=== PATIENT | female | born 1960 | race African-American/Black ===

== ENCOUNTER → 2016-09-16 | Outpatient (CLI) | payer OTHER ==
--- NOTE | 2016-09-17 20:08 | HKNOTE ---
DATE OF SERVICE: 09/16/2016 REFERRING PHYSICIAN: Shirlene Murdock, RUTHIE; [address] [facility]; [place], [place] [address]. MAIN COMPLAINT: Pain in the left knee. HISTORY OF MAIN COMPLAINT: The patient is a 56-year-old female, who complains of pain in her left k nee. Pain has been present now for about 2 months. The patient tore a ligament in her left knee hiking in the [facility] in 2013. Her torn anterior cruciate ligament was repaired by Dr. Draper. She had no problems with her left knee after that until about 2 months ago, when she had a sudden on set of pain and swelling in the left knee. This occurred after a particularly strenuous session of "[employer] step dancing." The knee swells and occasionally feels unstable. The knee does not lock. The pain is mild and is a ggravated by walking, weightbearing, and stair climbing. She occasionally gets night pain and rest pain. On a level surface, she can walk as far as she likes, but if she twists her knee, then it fee ls unstable. She does limp almost all the time. She does not have a shoe lift. She cannot clip her toenails, bu t she can put on her shoes and socks. PAST ORTHOPEDIC HISTORY: ACL repair of the right knee by Dr. Draper in 2013. PRIOR CORTISONE INTAKE: None. ALCOHOL INTAKE: None. BLOOD TESTS FOR ARTHRITIS: None. OTHER JOINT PROBLEMS: None. WORK STATUS: Not working at present. PAST MEDICAL HISTORY: Hypertension, glaucoma. PAST SURGICAL HISTORY: Right knee anterior cruciate ligament repair by Dr. Draper in 2013. ALLERGIES: NONE. MEDICATIONS: 1. Verapamil extended-release 120 mg daily for hypertension. 2. Prednisolone ophthalmic solution 3 times a day for glaucoma. FAMILY HISTORY: Noncontributory. SYSTEMS REVIEW: Failing vision, gait disturbance, hypertension, otherwise negative. HABITS: The patient quit smoking 12 years ago. Alcohol intake: None. PHYSICAL EXAMINATION GENERAL: The patient is a remarkably fit-looking and youthful 56-year-old female. VITAL SIGNS: Height 5 feet 6 inches, weight 177 pounds, blood pressure 120/75, temperature 98.1. GAIT: The patient has a slight antalgic gait. She walks without a walking aid. HIPS: Both hips have a full range of motion without pain. LEFT KNEE: The left knee shows normal alignment. Active and passive extension lacks 5 degrees. Acti ve and passive flexion lacks 20 degrees. The medial and lateral collateral ligaments and cruciate li gaments are intact. Armani test is negative. There is no effusion, tenderness, scarring, crepitus, or cysts. The patella tracks normally. There is no tenderness on the articular surface of the patell a or in the patellar groove. The Q angle is normal. Has 1+ effusion, tender over the medial joint li ne, 3+ crepitus in the knee, none in the patella. RIGHT KNEE: The right knee shows normal alignment. Active and passive extension is 0 degrees. Activ e and passive flexion is 135 degrees. The medial and lateral collateral ligaments and cruciate ligam ents are intact. Armani test is negative. There is no effusion, tenderness, scarring, crepitus, or cysts. The patella tracks normally. There is no tenderness on the articular surface of the patella o r in the patellar groove. The Q angle is normal. IMAGING: Plain x-rays of the left knee obtained today at the [facility] were reviewe d. These show mild narrowing of all 3 compartments of the knee. DIAGNOSES: 1. Mild degenerative osteoarthritis of the left knee. 2. Status post anterior cruciate ligament repair of the right knee. 3. Probable torn meniscus of the left knee. 4. Glaucoma. MANAGEMENT: The patient is being sent for an MRI scan of the right knee and will be seen again ther [facility] for reevaluation. She almost certainly will need to have an arthroscopic [facility]. RUTHIE Aleman; [address] [facility]; [place], [place] [address]. Dictated By: LEODAN ESQUIVEL/NAVEED Conf#: [id number] DID#: [id number]
--- NOTE | 2016-09-17 20:13 | HKNOTE ---
DATE OF SERVICE: 09/16/2016 Shirlene Washington, PATTERN CUTTER [address]. [place], [place] [address] Dear Ms. Washington: Thank you for referring Raj Barber, who was seen in my office today complaining of pain in her rig ht knee. She almost certainly has a torn meniscus in the left knee. In addition, she has moderate degenerati ve osteoarthritis of the knee, which is not the cause of her current symptoms. She is being referred for an MRI scan of the knee, and further treatment will depend upon the result s, but almost certainly she is going to need to have an arthroscopic operation on the knee. Enclosed is a copy of my office notes for your records. With warmest regards, Dictated By: LEOADN ROUSE MD HH/NTS Conf#: [id number] DID#: [id number] CC: AVERY ROSALES MD;*EndCC*
== END | disposition home or self-care (01) ==
LOC: HKI 14:18
DX: M17.12 Unilateral primary osteoarthritis, left knee (principal)
CPT/HCPCS: G0463

== ENCOUNTER → 2016-10-08 | Outpatient (CLI) | payer MEDICARE, OTHER ==
--- NOTE | 2016-10-14 22:11 | HKNOTE ---
DATE OF SERVICE: 10/08/2016 The patient comes in with her MRI scan for review. The MRI scan of her left knee obtained on [address] Do showing "extensive degenerative tearing and maceration of the body and anterior horn of the lateral meniscus with severe lateral femorotibial compartment osteoarthritis, i ncluding chronic bone remodeling and ____ subchondral cystic changes and bone marrow edema. Moderat e to high-grade chondral loss of the lateral patellar facet and moderate high-grade chondral fissuri ng in the central trochlea." The patient continues to have significant symptoms. We discussed the fact that she has arthritis of the knee and will eventually need to have a knee replacement. The MRI seems to indicate more exten sive osteoarthritis than was noted on the x-rays. The patient is only 56 years old. She is advised that in my professional opinion, at this point, she should undergo an operative arthr oscopy to get a better direct view of the interior of the knee and to perform whatever palliative pr ocedures can be performed to relieve of her current symptoms. The patient understands that this is a step stone procedure and it is difficult to indicate how soon after an arthroscopy she may end up needing a knee replacement. It is possible that it could be se veral years and it is possible that it could be 6 months or less. The procedure and some of the nova or possible complications were discussed with her. She would like to proceed with her procedure. S he indicates that because of her various family commitments she would like to have the procedure don e "around 11/10/2016." Dictated By: LEODAN ESQUIVEL/NAVEED Conf#: [id number] DID#: [id number]
== END | disposition home or self-care (01) ==
LOC: HKI 15:27
DX: M17.12 Unilateral primary osteoarthritis, left knee (principal); S83.282A Other tear of lateral meniscus, current injury, left knee, initial encounter

== ENCOUNTER → 2016-11-04 | Outpatient (CLI) | payer MEDICARE, OTHER ==
--- NOTE | 2016-11-04 15:28 | PREOPHP ---
DATE OF ADMISSION: 11/04/2016 HISTORY OF PRESENT ILLNESS: A 56-year-old female who presents today for preoperative examination for left knee diagnostic arthroscopy with possible meniscal repair. In 06/2016, the patient was hiking when she had a sudden onset of pain, followed by swelling to the knee. The pain will exacerbate especially while performing in her dance class. Since sudden injury/pain while hiking, she feels that her left knee is unstable. Denies any locking to the knee, but pain is aggravated by weightbearing, walking and climbing stairs. The patient did have an MRI performed on 10/06/2016 where there was reported extensive degenerative tearing and maceration of the body of the anterior horn of the lateral meniscus and severe lateral femorotibial compartment osteoarthritis. The patient was seen and evaluated by Dr. Rouse and given limited activity due to ongoing knee pain. He recommended diagnostic arthroscopy with possible suspected meniscal repairing and the patient wishes to pursue. Currently, she is having no limitations or possible complications to pursuing surgery. She is not having any cardiac, pulmonary, abdominal or genitourinary complaints. The patient has been seen by primary care provider, who has permitted patient to proceed with surgery. PAST ORTHOPEDIC HISTORY: Significant for ACL repair of the right knee performed by Dr. Draper in 2013. Denies any past cortisone injections. ALLERGIES: NO KNOWN ALLERGIES. MEDICATIONS: 1. Verapamil 120 mg daily in regards to hypertension. 2. Prednisolone ophthalmic solution for glaucoma. DISCUSSION: The patient was seen and evaluated today. Discussion regarding potential risks versus benefits in regards to arthroscopy had with the patient today. The patient is aware of certain risks such as increased bleeding, infection, no relief of symptoms and has signed consents to continue pursuit of surgery. Surgery is scheduled for 11/06/2016. The patient will present to hospital on the day of surgery and all instructions were provided. Postoperative pain medication of [place] 10/325 mg 1 tab p.o. q.8 hours p.r.n. severe pain only, #40 provided for patient today. Dictated By: GAETANO ODELL for LEODAN ROUSE MD, KP/NAVEED Conf#: [id number] DID#: [id number] [facility] CENTERSarah Beth
== END | disposition home or self-care (01) ==
LOC: HKI 13:30
DX: M25.562 Pain in left knee (principal); M17.12 Unilateral primary osteoarthritis, left knee
CPT/HCPCS: G0463

== ENCOUNTER → 2016-12-02 | Outpatient (CLI) | payer MEDICARE, OTHER ==
[~2016-12-02] MED LIST: PRD1OP5 RIGHT EYE; VERA120T77 PO
--- NOTE | 2016-12-03 03:02 | HKNOTE ---
DATE OF SERVICE: 12/02/2016 The patient comes for preoperative evaluation. She is scheduled to have operative arthroscopy on he r left knee on 12/03/2016. She has been cleared for surgery by her charge master coordinator, Dr. Robby Bales. S he continues to have significant symptoms in the knee including instability and locking which occur almost on a daily basis. The MRI was again reviewed which shows macerated tears of the lateral meniscus and quite extensive a rthritis. We spent some time discussing the probability that she will need to have a knee replacement operatio n and whether or not she should cancel the arthroscopic operation and proceed directly to a knee rep lacement operation. The patient indicates that she has got too much going on in her life at the present time. She would like to have "the smaller operation" and would like to, in any case, have a good look as to what th e knee looks like inside. Dictated By: LEODAN ESQUIVEL/NAVEED Conf#: [id number] DID#: [id number]
== END | disposition home or self-care (01) ==
LOC: HKI 13:40
DX: M23.201 Derangement of unspecified lateral meniscus due to old tear or injury, left knee (principal); M17.12 Unilateral primary osteoarthritis, left knee
CPT/HCPCS: G0463

== ENCOUNTER 2016-12-03 05:25 | Day surgery (SDC) | payer MEDICARE, OTHER ==
[2016-12-02 15:12] VITALS: BMI 25.6
[~2016-12-03] VITALS: Ht 167.6 cm; Wt 77.8 kg
[2016-12-03 05:45] VITALS: BP 145/82; PULSE 77; RESP 18; Ht 167.6 cm; Wt 77.8 kg
[2016-12-03] MEDS ORDERED: ONDANSETRON 4 MG INJ IV ONE (06:00)
[2016-12-03] MEDS ORDERED: oxyCODONE (CR) 10 MG TAB [oxyCONTIN] PO ONE (06:00)
[2016-12-03] MEDS ORDERED: VANCOMYCIN 1 GM (PMX) 250 ML IVPB ONE (06:00)
[2016-12-03] MEDS ORDERED: LACTATED RINGER'S 1,000 ML IV* SCH (06:00)
[2016-12-03] MEDS ORDERED: CELECOXIB 200 MG CAP PO ONE (06:00)
[2016-12-03] MEDS ORDERED: DEXAMETHASONE 4 MG/ML 1 ML INJ IV ONE (06:00)
[2016-12-03] MEDS ORDERED: ACETAMINOPHEN 1000MG/100ML IV 100 ML IVPB ONE (06:00)
[2016-12-03] MEDS ORDERED: LANSOPRAZOLE 30 MG CAP PO ONE (06:00)
[2016-12-03] MEDS ORDERED: VERA120T77 PO (06:39)
[2016-12-03] MEDS ORDERED: PRD1OP5 RIGHT EYE (06:50)
[2016-12-03] MEDS ORDERED: ROPIVACAINE 0.5 % 30 ML VIAL ONE (06:58)
[2016-12-03] MEDS ORDERED: BUPIVACAINE 0.25%/EPI (SDV) 30 ML INJ ONE (06:58)
[2016-12-03] MEDS ORDERED: VANCOMYCIN 1 GM INJ ONE (06:58)
[2016-12-03] MEDS ORDERED: morphine SULFATE/PF (10 MG/10 ML) INJ ONE (06:59)
[2016-12-03] MEDS ORDERED: KETOROLAC 30 MG INJ ONE ×2 (06:59→07:18)
[2016-12-03] MEDS ORDERED: METOCLOPRAMIDE 10 MG INJ ONE (07:18)
[2016-12-03] MEDS ORDERED: PROPOFOL 20 ML ONE (07:18)
[2016-12-03] MEDS ORDERED: MIDAZOLAM 1 MG/ML 2 ML INJ ONE (07:18)
--- NOTE | 2016-12-03 07:18 | HPN ---
Date/Time of Note Date/Time of Note DATE: 12/03/16 TIME: 07:18 Interval H&P Admission Note Pt. seen H&P reviewed: No system changes GAETANO CAO PA-C Dec 03, 2016 07:18
[2016-12-03] MEDS ORDERED: FENTAnyl 50 MCG/ML VIAL ONE (07:19)
[2016-12-03] MEDS ORDERED: ONDANSETRON 4 MG INJ IV PRN ×2 (08:00→08:30)
[2016-12-03] MEDS ORDERED: OXYCODONE/ACETAMINOPHEN (5/325) TAB PO PRN ×2 (08:00)
[2016-12-03] MEDS ORDERED: DIPHENHYDRAMINE 50 MG INJ IV PRN (08:00)
[2016-12-03] MEDS ORDERED: HYDROmorphONE (0.2 MG/ML) 10ML SYG IV PRN ×3 (08:00)
[2016-12-03] MEDS ORDERED: METOCLOPRAMIDE 10 MG INJ IV PRN (08:00)
[2016-12-03] MEDS ORDERED: MEPERIDINE 25 MG INJ IV PRN (08:00)
[2016-12-03] MEDS ORDERED: morphine SULFATE/PF (10 MG/10 ML) INJ INJ ONE (08:10)
[2016-12-03] MEDS ORDERED: HYDROCODONE/APAP (5/325) TAB PO PRN ×2 (08:30)
[2016-12-03] MEDS ORDERED: ACETAMINOPHEN 1000MG/100ML IV 100 ML IVPB SCH (08:30)
[2016-12-03] MEDS ORDERED: morphine 10 MG INJ IV PRN (08:30)
[2016-12-03] MEDS ORDERED: HYDROCODONE/APAP (10/325) TAB PO PRN (08:30)
[2016-12-03 09:10] VITALS: BP 135/76; PULSE 85; RESP 17
[2016-12-03 09:15] VITALS: BP 127/74; PULSE 92; RESP 19
[2016-12-03 09:20] VITALS: BP 128/71; PULSE 82; RESP 15
[2016-12-03 09:25] VITALS: BP 120/69; PULSE 78; RESP 14
[2016-12-03 10:00] VITALS: BP 123/66; PULSE 72; RESP 16
--- NOTE | 2016-12-03 11:10 | OPR ---
DATE OF OPERATION: 12/03/2016 Andrea Andrews MD VENEER REPAIRER MACHINE: ____ ANESTHESIOLOGIST: ____. PREOPERATIVE DIAGNOSES: 1. Degenerative osteoarthritis of the left knee. 2. Torn lateral meniscus. POSTOPERATIVE DIAGNOSES: 1. Degenerative osteoarthritis of the left knee. 2. Torn lateral meniscus. FINDINGS AT SURGERY: The knee was found to have extensive arthritis throughout all of a mild to mod erate degree with fairly severe degenerative changes on the medial femoral condyle and the lateral t ibial plateau. The medial meniscus was intact. The cruciate ligaments were intact. The lateral me niscus showed compound tears throughout, most severely in the anterior third. PROCEDURES: 1. Diagnostic arthroscopy. 2. Partial lateral meniscectomy. 3. Thermal chondroplasty of the lateral femoral condyle. DESCRIPTION OF PROCEDURE: Under general anesthetic, the left leg was prepared and draped in the usu al sterile fashion. A tourniquet was not used. Standard inferomedial and inferolateral portals wer e used. The knee was systematically inspected and the above findings were noted. Using a variety of basket forceps and a motorized intraarticular shaver, a partial lateral meniscect skinny was performed. The remaining meniscus was balanced and stable. Using a ____wand, thermal chondroplasty was performed on unstable articular cartilage on the lateral femoral condyle. Bleeding points were cauterized. The soft tissues around the knee were injected with a cocktail of Duramorph, Naropin and Toradol. DISCUSSION: The degree of arthritis in her knee was not quite as severe as I had expected preoperat ively. Hopefully she will be able to go another year or two before she needs a knee replacement. T here is no doubt that she will need to have a knee replacement sooner or later. Dictated By: ANDREA ESQUIVEL/NAVEED Conf#: [id number] DID#: [id number]
== END 2016-12-03 10:45 | disposition home or self-care (01) ==
LOC: SDS 05:25
DX: M23.201 Derangement of unspecified lateral meniscus due to old tear or injury, left knee (principal); M17.12 Unilateral primary osteoarthritis, left knee; I10 Essential (primary) hypertension
CPT/HCPCS: 29881; J0131; J1100; J1885; J2175; J2250; J2274; J2405; J2765; J2795; J3010; J3370; J7120

== ENCOUNTER → 2016-12-08 | Outpatient (CLI) | payer MEDICARE, OTHER ==
--- NOTE | 2016-12-08 15:19 | PN ---
Date/Time of Note Date/Time of Note DATE: 12/08/16 TIME: 15:16 Outpatient Progress Note Chief Complaint Status post arthroscopy HPI 56-year-old female presents today for postoperative visit status post diagnostic arthroscopy, partial lateral meniscectomy and thermal chondroplasty of the lateral femoral condyle performed on 12/03/2016. Patient states that she is back to her normal activity. She is using no assisted ambulatory device. She denies any pain complaints to the left knee. Patient is very pleased status post surgery as she states that she can walk up to 2 miles. She states that there was one occasion where she even went dancing status post surgery. Denies any falls or new injury. Review of Systems Const: No Fever, no chills, no Fatigue, normal appetite, no diaphoresis. Resp: No SOB, no wheezing, no chest pain. CV: No chest pain, no palpitaions, no CHACON. Physical Exam Blood pressure is 140/86, temperature is 98.3, pulse is 77, respiratory rate is 12, height is 5 foot 6 inches, weight is 165 pounds General Appearance: well-developed, well-nourished, in no acute distress. Left knee: Gait is normal and nonantalgic. Mild edema on inspection to the left knee status post surgery. Sutures are clean dry and intact. Full range of motion with flexion and extension on exam today. No tenderness to palpation. Normal sensory examination to light touch. Allergies Coded Allergies: No Known Allergy (Unverified , 12/03/16) Assessment/Plan * Arthroscopy pictures reviewed today. * Patient refuses outpatient physical therapy as she feels that there is no need at this time. * Lengthy discussion had with patient today. We are pleased the patient is doing so well and back to her normal routine but it was also recommended that she avoid high intensity activity such as dancing as she states that she is Dipak been dancing and heel status post surgery. She is still within 1 week from the surgery and we would want to minimize all potential flareups or repeat injury and she states understanding. * Follow-up 1 week for repeat evaluation and suture removal. Medications Home Meds Reported Medications Prednisolone Acetate* (Pred Forte*) 5 Ml Susp, 1 DROP RIGHT EYE QID, EA 12/03/16 Verapamil Hcl* (Verapamil ER*) 120 Mg Tablet.er, 120 MG PO DAILY, TAB.SA 12/03/16 GAETANO CAO PA-C Dec 08, 2016 15:19
== END | disposition home or self-care (01) ==
LOC: HKI 14:22
DX: Z47.89 Encounter for other orthopedic aftercare (principal)

== ENCOUNTER → 2016-12-15 | Outpatient (CLI) | payer MEDICARE, OTHER ==
--- NOTE | 2016-12-15 14:27 | PN ---
Date/Time of Note Date/Time of Note DATE: 12/15/16 TIME: 14:23 Outpatient Progress Note Chief Complaint Follow-up status post left knee arthroscopy HPI 56-year-old female presents today for follow-up status post diagnostic arthroscopy, partial lateral meniscectomy and thermal chondroplasty of the lateral femoral condyle performed on 12/03/2016. Patient denies any pain complaints to the left knee. She is up and ambulating without any assisted ambulatory device. Patient did have mild symptoms of pruritus around the knee. Used cold compress and "Gutiérrez butter" which alleviated itching. Denies any complications to surgical wound. Denies any falls or new onset of injury. Review of Systems Const: No Fever, no chills, no Fatigue, normal appetite, no diaphoresis. Resp: No SOB, no wheezing, no chest pain. CV: No chest pain, no palpitaions, no CHACON. Physical Exam Blood pressure is 134/85, temperature is 98.9, pulse is 116, respiratory rate is 12, height is 5 foot 6 inches, weight is 165 pounds General Appearance: well-developed, well-nourished, in no acute distress. Left knee: Sutures are clean dry and intact with no signs of complications. No signs of infection. No tenderness to palpation on exam. Patient has full range of motion with flexion and extension. 5/5 strength on resistance. Gait is normal and nonantalgic. Normal sensory examination to light touch. Allergies Coded Allergies: No Known Allergy (Unverified , 12/03/16) Assessment/Plan * Suture removal performed today. Steri-Strips applied. * Patient may return to normal activity but was advised to gradually return to normal function. * Continue supportive measures as needed such as ice modalities and anti- inflammatories. * Advised to limit dancing as she does like to dance frequently and gradually increase dancing in the next couple of weeks. Given the intensity of her dancing we want to reduce risk of failure of arthroscopy due to return to high intensity activity too soon. Likely, patient may initiate dancing at a normal pace in 4-5 weeks and she states understanding. * Follow-up as needed Dr. Andrews was present for examination and agrees with plan. Medications Home Meds Reported Medications Prednisolone Acetate* (Pred Forte*) 5 Ml Susp, 1 DROP RIGHT EYE QID, EA 12/03/16 Verapamil Hcl* (Verapamil ER*) 120 Mg Tablet.er, 120 MG PO DAILY, TAB.SA 12/03/16 GAETANO CAO PA-C Dec 15, 2016 14:27
== END | disposition home or self-care (01) ==
LOC: HKI 14:05
DX: Z47.89 Encounter for other orthopedic aftercare (principal); L29.9 Pruritus, unspecified

== ENCOUNTER → 2017-04-12 | Outpatient (CLI) | payer MEDICARE, OTHER ==
--- NOTE | 2017-04-13 04:54 | HKNOTE ---
DATE OF SERVICE: 04/12/2017 CHIEF COMPLAINT: Left knee pain. HISTORY OF PRESENT ILLNESS: This is a 57-year-old female who had a left knee arthroscopic partial l ateral meniscectomy by Dr. Andrews on 12/03/2016. She is complaining of occasional pain in the l eft knee. She has occasional locking and catching. She denies any instability. She does not use a ny assistive devices. She denies any history of trauma. She denies any groin or back pain. The pa in is mostly on the outside of the left knee. She has not attended physical therapy. She does not take any pain medications. GAIT: Nonantalgic gait. No use of assistive device. LEFT KNEE: Previous incision portals have healed. There is no effusion. Tender over the lateral j oint line. Nontender over the medial joint line. 0 to 120 degrees range of motion, stable to varus and valgus stress. Negative Carmela. Negative Armani. Negative anterior drawer. Negative pos terior drawer. MOTOR STRENGTH: 5/5 quadriceps, hamstrings, tibialis anterior, gastroc soleus. IMAGING: X-rays, left knee: Three views of the left knee demonstrate degenerative changes of the l ateral compartment with joint space narrowing. There are marginal osteophytes. There are no fractu res of dislocations. IMPRESSION: A 57-year-old female with left knee osteoarthritis. PLAN: She will begin outpatient physical therapy. She already has an authorization. I discussed t reatment options, including corticosteroid injection versus viscosupplementation. If she continues to have pain in the future, she will follow up for an injection. I also discussed the need for poss ible total knee arthroplasty in the future. Dictated By: MARTELL CARRILLO/NAVEED Conf#: [id number] DID#: [id number]
--- NOTE | 2017-04-13 18:31 | RADRPT ---
PROCEDURE: XR Knee. CLINICAL INDICATION: Pain. TECHNIQUE: Left knee x-rays, 4 views. COMPARISON: None. FINDINGS: Bones: Density appears normal. Bony cortices are smooth and contiguous. Joint(s): Moderate lateral compartment joint space narrowing is observed. Small moderate osteophytes are also present. Lesser degenerative changes are seen within the remaining compartments. Tiny oste ophytes project from the tibial spines. There is no evidence of joint effusion. Soft tissues: Unremarkable. IMPRESSION: Moderate lateral compartment osteoarthritis. RPTAT: HLST .Ema Wick MD, Date Time Electronically viewed and signed by .Ema Wick MD, on 04/13/2017 18:31 .T/
== END | disposition home or self-care (01) ==
LOC: HKI 09:45
PROVIDERS: ATTEND Orthopaedic Surgery Adult Reconstructive Orthopaedic Surgery
DX: M17.12 Unilateral primary osteoarthritis, left knee (principal)
CPT/HCPCS: 73564; Z7500; G0463